=== PATIENT | female | born 1990 | race Caucasian/White ===

== ENCOUNTER 2017-07-20 13:43 | Emergency (ER) | payer SELFPAY ==
[2017-07-20 13:50] VITALS: TEMP 98.6; BMI 58.5
--- NOTE | 2017-07-20 14:03 | PDOC ---
History of Present Illness - General Chief Complaint: Injury Stated Complaint: FALL/ LT KNEE INJURY Time Seen by Provider: 07/20/17 14:03 - History of Present Illness Initial Comments: 07/20/17 14:04 Javier is a morbidly obese 26 yo female who identifies as a male. Currently taking no hormone therapy however was on testosterone injections in 2013. Presents for evaluation of left knee pain after fall from missing a step earlier today. Patient reports falling and hearing some "pops" while twisting the knee. Presented for evaluation directly after. The patient denies chest pain, shortness of breath, headache and dizziness. Denies fever, chills, nausea, vomit, diarrhea and constipation. Denies dysuria, frequency, urgency and hematuria. Allergies: NKDA Past History - Past Medical History Allergies/Adverse Reactions: Allergies Allergy/AdvReac Type Severity Reaction Status Date / Time No Known Allergies Allergy Verified 07/20/17 13:45 Home Medications: Ambulatory Orders NK [No Known Home Medication] 02/25/15 COPD: No - Immunization History Immunization Up to Date: Yes - Suicide/Smoking/Psychosocial Hx Smoking History: Never smoked Have you smoked in the past 12 months: No Hx Alcohol Use: Yes Drug/Substance Use Hx: No Substance Use Type: None Review of Systems - Review of Systems Comments:: 07/20/17 14:04 GENERAL/CONSTITUTIONAL: No fever or chills. No weakness. HEAD, EYES, EARS, NOSE AND THROAT: No change in vision. No ear pain or discharge. No sore throat. CARDIOVASCULAR: No chest pain or shortness of breath RESPIRATORY: No cough, wheezing, or hemoptysis. GASTROINTESTINAL: No nausea, vomiting, diarrhea or constipation. GENITOURINARY: No dysuria, frequency, or change in urination. MUSCULOSKELETAL: +Left knee pain after fall SKIN: No rash NEUROLOGIC: No headache, vertigo, loss of consciousness, or change in strength/ sensation. ENDOCRINE: No increased thirst. No abnormal weight change HEMATOLOGIC/LYMPHATIC: No anemia, easy bleeding, or history of blood clots. ALLERGIC/IMMUNOLOGIC: No hives or skin allergy. *Physical Exam - Vital Signs Last Vital Signs Temp Pulse Resp BP Pulse Ox 98.6 F 150 H 20 135/90 100 07/20/17 13:46 07/20/17 13:46 07/20/17 13:46 07/20/17 13:46 07/20/17 13:46 - Physical Exam Comments: 07/20/17 14:04 GENERAL: +Morbidly obese. Awake, alert, and fully oriented, in no acute distress HEAD: No signs of trauma, normocephalic, atraumatic EYES: PERRLA, EOMI, sclera anicteric, conjunctiva clear ENT: Auricles normal inspection, hearing grossly normal, nares patent, oropharynx clear without exudates. Moist mucosa NECK: Normal ROM, supple, no lymphadenopathy, JVD, or masses LUNGS: No distress, speaks full sentences, clear to auscultation bilaterally HEART: Regular rate and rhythm, normal S1 and S2, no murmurs, rubs or gallops, peripheral pulses normal and equal bilaterally. ABDOMEN: Soft, nontender, normoactive bowel sounds. No guarding, no rebound. No masses EXTREMITIES: +Pain with varus movement of left knee. Patient unable to lift knee or move against resistance. Otherwise normal inspection, Normal range of motion, no edema. No clubbing or cyanosis. NEUROLOGICAL: Cranial nerves II through XII grossly intact. Normal speech, normal gait, no focal sensorimotor deficits SKIN: Warm, Dry, normal turgor, no rashes or lesions noted. Medical Decision Making - Medical Decision Making 07/20/17 14:31 Javier is a 26 yo female who identifies as male who presents for evaluation after fall earlier today. Patient currently reporting knee pain as described. Knee 3 view ordered for evaluation. Patient denied need for pain medications at this time. 07/20/17 14:54 XR negative for acute fracture. Patient given brace and crutches with Rx for symptomatic relief. Ortho referral likewise given. Discharging patient to home with Dx of knee sprain and instructions to f/u with ortho. Patient verbalized understanding and agreement and will comply. *DC/Admit/Observation/Transfer Diagnosis at time of Disposition: Knee sprain Qualifiers: Encounter type: initial encounter Involved ligament of knee: unspecified ligament Laterality: left Qualified Code(s): S83.92XA - Sprain of unspecified site of left knee, initial encounter - Discharge Dispostion Disposition: HOME - Referrals Referrals: Ángel Carey MD [Staff Physician] - - Patient Instructions Printed Discharge Instructions: DI for Knee Sprain Additional Instructions: Please follow-up with orthopedics as needed for further evaluation. A proscription has been called to your pharmacy for pain control; take medications as written for pain as needed. Return to ER if any fever, chills, pain uncontrolled by medication, or other concerning symptoms. - Post Discharge Activity
--- NOTE | 2017-07-20 14:32 | PDOC ---
Attending Attestation - HPI HPI: 07/20/17 14:34 The patient is a 26 year old female who identifies as a male, with no significant past medical history, who presents to the emergency department for evaluation of left knee. The patient reports missing a step, falling and twisting the knee today. Patient reports moderate pain in left knee with no radiation. Denies chest pain, shortness of breath, headache, and dizziness. Denies fevers, chills, nausea, vomiting, diarrhea, and any other kinds of injury. Allergies: NKDA Social history: No reported cigarette, alcohol, or drug use. <FrancisAbner - Last Filed: 07/20/17 14:34> - Resident Resident Name: Bigg Silva - ED Attending Attestation I have performed the following: I have examined & evaluated the patient, The case was reviewed & discussed with the resident, I agree w/resident's findings & plan, Exceptions are as noted - Physicial Exam PE: GENERAL: Awake, alert, and fully oriented, in no acute distress HEAD: No signs of trauma EYES: PERRLA, EOMI, sclera anicteric, conjunctiva clear ENT: Auricles normal inspection, hearing grossly normal, nares patent, oropharynx clear without exudates. Moist mucosa NECK: Normal ROM, supple, no lymphadenopathy, JVD, or masses LUNGS: Breath sounds equal, clear to auscultation bilaterally. No wheezes, and no crackles HEART: Regular rate and rhythm, normal S1 and S2, no murmurs, rubs or gallops ABDOMEN: Soft, nontender, normoactive bowel sounds. No guarding, no rebound. No masses EXTREMITIES: L knee with tenderness to medial surface. No ligamentous instability, however, with dec ROM due to pain. No palpable effusion, however, exam limited by obesity. Starla test negative. Remainder of extremities with normal range of motion, no edema. No clubbing or cyanosis. No cords, erythema, or tenderness NEUROLOGICAL: Cranial nerves II through XII grossly intact. Normal speech. Motor and sensation intact. SKIN: Warm, Dry, normal turgor, no rashes or lesions noted. - Medical Decision Making Pt with knee pain after hearing a pop while falling. No signs of septic joint. XR no acute findings. Will place knee immobilizer, will crutch train. For ortho f/u. <Lorna Lima Last Filed: 07/24/17 08:44> Attestations - Attestations Documentation prepared by Abner Blanco, acting as medical physics teacher for Lorna Lima MD. <Abner Blanco - Last Filed: 07/20/17 14:34>
[2017-07-20 15:55] VITALS: BP 130/82; PULSE 98
== END 2017-07-20 15:55 | disposition home or self-care (01) ==
LOC: JERFT 13:43
PROC: 2W3RX1Z Immobilization of Left Lower Leg using Splint (ICD-10-PCS; principal; 2017-07-20)
DX: S83.92XA Sprain of unspecified site of left knee, initial encounter (principal); W10.9XXA Fall (on) (from) unspecified stairs and steps, initial encounter; Y93.89 Activity, other specified; Y92.9 Unspecified place or not applicable
CPT/HCPCS: 73560-TC-LT-FY; 99282-25